=== PATIENT | female | born 1970 | race Hispanic/Latino ===

== ENCOUNTER 2020-09-20 05:38 | Day surgery (SDC) | payer OTHER ==
[~2020-09-20] VITALS: Ht 160 cm; Wt 76.2 kg
[2020-09-20] VITALS (7 sets, daily range): BP systolic 102–137; BP diastolic 65–81
[2020-09-20] MEDS ORDERED: 0.9%NACL 1000ML 1,000 ML IV ONE (06:31)
[2020-09-20] MEDS ORDERED: PROPOFOL 10 MG/ML 20ML VIAL IV ONE ×2 (07:11→07:27)
[2020-09-20] MEDS ORDERED: LORA10TA7 PO (07:18)
[2020-09-20] MEDS ORDERED: INSU100I21 SQ (07:18)
[2020-09-20] MEDS ORDERED: LOSA25TA41 PO (07:18)
[2020-09-20] MEDS ORDERED: GABA-529 PO (07:18)
[2020-09-20] MEDS ORDERED: INSU100I3 SQ (07:18)
[2020-09-20] MEDS ORDERED: FLUO20CA30 PO (07:18)
[2020-09-20] MEDS ORDERED: ATOR40TA71 PO (07:18)
[2020-09-20] MEDS ORDERED: METF-527 PO (07:18)
[2020-09-20] MEDS ORDERED: OMEP20CA12 PO (07:18)
== END 2020-09-20 08:25 | disposition home or self-care (01) ==
LOC: ENDO 05:38 → DAH 05:38 → ENDO 08:25
PROVIDERS: ATTEND Internal Medicine Gastroenterology
DX: R10.13 Epigastric pain (principal); R94.5 Abnormal results of liver function studies; Z20.822 Contact with and (suspected) exposure to COVID-19; K83.8 Other specified diseases of biliary tract; K29.50 Unspecified chronic gastritis without bleeding; I10 Essential (primary) hypertension; E11.9 Type 2 diabetes mellitus without complications; E78.5 Hyperlipidemia, unspecified; F32.9 Major depressive disorder, single episode, unspecified; Z79.4 Long term (current) use of insulin; Z90.49 Acquired absence of other specified parts of digestive tract; Z90.710 Acquired absence of both cervix and uterus; Z88.0 Allergy status to penicillin; Z88.1 Allergy status to other antibiotic agents
CPT/HCPCS: 43239; 43259; 82948; 87426; A4215 ×2; A4221; A4222; A4223; A4606; A4620; A4663; J2704 ×2; J7030